=== PATIENT | female | born 1940 | race African-American/Black ===

== ENCOUNTER 2018-06-29 10:34 | Emergency (ER) | payer MEDICARE ==
[~2018-06-29] VITALS: Ht 157.5 cm; Wt 56.0 kg
[2018-06-29 11:49] LABS: BASOPHILS % 0.2 % (0.0-2.0); EOSINOPHILS % 1.3 % (0.0-5.0); HEMATOCRIT. 38.2 % (36.0-48.0); HEMOGLOBIN. 12.5 g/dL (12.0-16.0); LYMPHOCYTES % 17.2 % (20.0-50.0); MEAN CORPUSCULAR HEMOGLOBIN 31.3 pg (28.0-32.0); MEAN CORPUSCULAR VOLUME 95.8 fL (81.0-99.0); MEAN PLATELET VOLUME 8.3 fl (7.4-10.4); MONOCYTES % 4.5 % (2.0-8.0); NEUTROPHILS % 76.8 % (40.0-76.0); PLATELET 268 x1000/uL (130-400); RED BLOOD CELL COUNT 3.99 mill/uL (4.2-5.4); RED CELL DISTRIBUTION WIDTH 13.3 % (11.6-14.6)
[2018-06-29 11:54] LABS: CHLORIDE 112 mEq/L (98-107)
[2018-06-29 12:00] LABS: ETHANOL BLOOD < 10 mg/dL
[2018-06-29 12:03] LABS: D-DIMER 1.36 mg/L FEU (<0.50); PROTHROMBIN TIME 10.5 sec (9.1-11.1)
[2018-06-29 14:00] VITALS: BP 155/83
[2018-06-29] MEDS ORDERED: LORAZEPAM 2MG/ML CPJ IV ONE (14:00)
[2018-06-29] MEDS ORDERED: ENOXAPARIN 60MG/0.6ML SYR SUBCUT ONE (14:00)
== END 2018-06-29 14:20 | disposition left against medical advice (07) ==
LOC: ER 10:51 → EDBD 10:51 → ER 14:20 → CANBEDREQ 06-30 00:39
DX: R07.89 Other chest pain (principal); R06.02 Shortness of breath; R11.0 Nausea; I10 Essential (primary) hypertension; Z86.73 Personal history of transient ischemic attack (TIA), and cerebral infarction without residual deficits; Z87.81 Personal history of (healed) traumatic fracture; Z88.5 Allergy status to narcotic agent
CPT/HCPCS: 36415; 71045; 83880; 84484; 85379; 93005; 93970; 99284